=== PATIENT | female | born 1975 | race Hispanic/Latino ===

== ENCOUNTER 2019-08-16 22:58 | Emergency (ER) | payer SELFPAY ==
--- NOTE | 2019-08-16 23:40 | ER ---
Nurse's Notes [facility] Name: Yudith Silva Age: 44 yrs Sex: Female : 1975 Arrival Date: 08/16/2019 Time: 23:04 Bed 10 Private MD: Diagnosis: Superficial injury of head Presentation: 08/16 23:22 Presenting complaint: Patient states: she hit right side of her head on a shelf at work bb today approx 1730 called the work hot line for injuries and they recommended she be seen in the ED pt has headache which has improved now denies LOC, denies vomiting. Transition of care: patient was not received from another setting of care. Onset of symptoms was August 16, 2019. Risk Assessment: Do you want to hurt yourself or someone else? Patient reports no desire to harm self or others. Initial Sepsis Screen: Does the patient meet any 2 criteria? No. Patient's initial sepsis screen is negative. Does the patient have a suspected source of infection? No. Patient's initial sepsis screen is negative. Care prior to arrival: None. 23:22 Method Of Arrival: Ambulatory bb 23:22 Acuity: LEXY 5 bb Triage Assessment: 23:24 General: Appears in no apparent distress. Behavior is calm, cooperative. Pain: bb Complains of pain in right temporal area Pain currently is 7 out of 10 on a pain scale. Neuro: Level of Consciousness is awake, alert, obeys commands, Oriented to person, place, time, situation. Cardiovascular: No deficits noted. Respiratory: Respiratory effort is even, unlabored, Respiratory pattern is regular. GI: No signs and/or symptoms were reported involving the gastrointestinal system. Derm: Skin is pink, warm \T\ dry. Bruising that is on right temporal area. Musculoskeletal: Circulation, motion, and sensation intact. [employer]: 23:24 LMP N/A - Post-menopause bb Historical: - Allergies: 23:24 No Known Allergies; bb - Home Meds: 23:24 None [Active]; bb - PMHx: 23:24 None; bb - PSHx: 23:24 None; bb - Immunization history:: Adult Immunizations up to date. - Social history:: Smoking status: Patient/guardian denies using tobacco. - Ebola Screening: : No symptoms or risks identified at this time. Screenin:34 Abuse screen: Denies threats or abuse. Nutritional screening: No deficits noted. bb Tuberculosis screening: No symptoms or risk factors identified. Fall Risk None identified. Assessment: 23:26 Reassessment: No changes from previously documented assessment. see triage assessment. bb 23:51 Reassessment: pt verbalized understanding of and agrees to plan of care discharge bb instructions given pt ambulated with steady gait to exit. Vital Signs: 23:24 BP 137 / 67; Pulse 73; Resp 16 S; Temp 98.2(O); Pulse Ox 100% on R/A; Weight 52.16 kg bb (R); Height 4 ft. 11 in. (149.86 cm) (R); Pain 7/10; 23:24 Body Mass Index 23.23 (52.16 kg, 149.86 cm) bb Mariam Coma Score: 08/17 00:38 Eye Response: spontaneous(4). Verbal Response: oriented(5). Motor Response: obeys kb commands(6). Total: 15. ED Course: 08/16 23:04 Patient arrived in ED. ds1 23:23 Triage completed. bb 23:24 Arm band placed on Patient placed in an exam room, on a stretcher, on pulse oximetry. bb 23:31 Lidia Ricci F[facility]-C is [facility]. kb 23:31 Juwan Mathis MD is Attending Physician. kb 23:34 Patient has correct armband on for positive identification. Bed in low position. Call bb light in reach. 23:52 No provider procedures requiring assistance completed. Patient did not have IV access bb during this emergency room visit. Administered Medications: No medications were administered Outcome: 23:38 Discharge ordered by . kb 23:52 Discharged to home ambulatory. bb 23:52 Condition: stable 23:52 Discharge instructions given to patient, Instructed on discharge instructions, follow up and referral plans. Demonstrated understanding of instructions, follow-up care. 23:52 Patient left the ED. bb Signatures: Lidia Ricci FNP-C FNP-Ckb Sanford, Demi ds1 Evelyn Mathew, RN RN bb
--- NOTE | 2019-08-16 23:40 | EDPHYS ---
Physician Documentation [facility] Name: Yudith Silva Age: 44 yrs Sex: Female : 1975 Arrival Date: 08/16/2019 Time: 23:04 Bed 10 Private MD: ED Physician Juwan Mathis HPI: 08/17 00:38 This 44 yrs old Female presents to ER via Ambulatory with complaints of Hit kb Head on Shelf. 00:38 The patient or guardian reports abrasion, injury, swelling, tenderness. The complaints kb affect the right faith. Context of injury: The problem was sustained at work, resulted from a direct blow, a shelf. Onset: The symptoms/episode began/occurred at 18:30. Associated signs and symptoms: The patient has no apparent associated signs or symptoms, Loss of consciousness: This patient did not experience any loss of consciousness. Severity of symptoms: At their worst the symptoms were mild, in the emergency department the symptoms are unchanged. The patient has not experienced similar symptoms in the past. The patient has not recently seen a physician. Pt reports she stood up and hit her head on a shelf. States she did it at work and was told she needed to get checked out. 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 - Social history:: Smoking status: Patient/guardian denies using tobacco. - Ebola Screening: : No symptoms or risks identified at this time. ROS: 08/17 00:37 Constitutional: Negative for fever, chills, and weight loss, Neck: Negative for injury, kb pain, and swelling, Cardiovascular: Negative for chest pain, palpitations, and edema, Respiratory: Negative for shortness of breath, cough, wheezing, and pleuritic chest pain, Abdomen/GI: Negative for abdominal pain, nausea, vomiting, diarrhea, and constipation, Back: Negative for injury and pain, MS/Extremity: Negative for injury and deformity, Neuro: Negative for headache, weakness, numbness, tingling, and seizure. Skin: Positive for abrasion(s), hematoma, of the right faith. Exam: 00:37 Constitutional: This is a well developed, well nourished patient who is awake, alert, kb and in no acute distress. Eyes: Pupils equal round and reactive to light, extra-ocular motions intact. Lids and lashes normal. Conjunctiva and sclera are non-icteric and not injected. Cornea within normal limits. Periorbital areas with no swelling, redness, or edema. ENT: Nares patent. No nasal discharge, no septal abnormalities noted. Tympanic membranes are normal and external auditory canals are clear. Oropharynx with no redness, swelling, or masses, exudates, or evidence of obstruction, uvula midline. Mucous membranes moist. Neck: Trachea midline, no thyromegaly or masses palpated, and no cervical lymphadenopathy. Supple, full range of motion without nuchal rigidity, or vertebral point tenderness. No Meningismus. Chest/axilla: Normal chest wall appearance and motion. Nontender with no deformity. No lesions are appreciated. Cardiovascular: Regular rate and rhythm with a normal S1 and S2. No gallops, murmurs, or rubs. Normal PMI, no JVD. No pulse deficits. Respiratory: Lungs have equal breath sounds bilaterally, clear to auscultation and percussion. No rales, rhonchi or wheezes noted. No increased work of breathing, no retractions or nasal flaring. Abdomen/GI: Soft, non-tender, with normal bowel sounds. No distension or tympany. No guarding or rebound. No evidence of tenderness throughout. MS/ Extremity: Pulses equal, no cyanosis. Neurovascular intact. Full, normal range of motion. Neuro: Awake and alert, GCS 15, oriented to person, place, time, and situation. Cranial nerves II-XII grossly intact. Motor strength 5/5 in all extremities. Sensory grossly intact. Cerebellar exam normal. Normal gait. 00:37 Head/face: Noted is no obvious of injury or deformity except hematoma, that is moderate, of the right faith. Vital Signs: 08/16 23:24 BP 137 / 67; Pulse 73; Resp 16 S; Temp 98.2(O); Pulse Ox 100% on R/A; Weight 52.16 kg bb (R); Height 4 ft. 11 in. (149.86 cm) (R); Pain 7/10; 23:24 Body Mass Index 23.23 (52.16 kg, 149.86 cm) bb [place] Coma Score: 08/17 00:38 Eye Response: spontaneous(4). Verbal Response: oriented(5). Motor Response: obeys kb commands(6). Total: 15. MDM: 08/16 23:31 Patient medically screened. kb 08/17 00:38 Data reviewed: vital signs, nurses notes. Data interpreted: Pulse oximetry: on room air kb is 100 %. Interpretation: normal. Counseling: I had a detailed discussion with the patient and/or guardian regarding: the historical points, exam findings, and any diagnostic results supporting the discharge/admit diagnosis, the need for outpatient follow up, a family practitioner, to return to the emergency department if symptoms worsen or persist or if there are any questions or concerns that arise at home. Administered Medications: No medications were administered Disposition: 02:55 Co-signature as Attending Physician, Juwan Mathis MD. elvis Disposition: 08/16/19 23:38 Discharged to Home. Impression: Superficial injury of head. - Condition is Stable. - Discharge Instructions: Hematoma, [id number], Head Injury, Adult, [id number]. - Medication Reconciliation Form, Thank You Letter, Antibiotic Education, Prescription Opioid Use form. - Follow up: Emergency Department; When: As needed; Reason: Worsening of condition. Follow up: Private Physician; When: 2 - 3 days; Reason: Recheck today's complaints, Continuance of care, Re-evaluation by your physician. Signatures: Lidia Ricci, TRIM SETTER-C TRIM SETTER-Ckb Juwan Mathis MD MD pkEvelyn Arriola RN RN bb Corrections: (The following items were deleted from the chart) 08/16 23:52 23:38 08/16/2019 23:38 Discharged to Home. Impression: Superficial injury of head. bb Condition is Stable. Forms are Medication Reconciliation Form, Thank You Letter, Antibiotic Education, Prescription Opioid Use. Follow up: Emergency Department; When: As needed; Reason: Worsening of condition. Follow up: Private Physician; When: 2 - 3 days; Reason: Recheck today's complaints, Continuance of care, Re-evaluation by your physician. kb
[2019-08-17 00:36] VITALS: BP 137/67; TEMP 98.2; O2SAT 100
== END 2019-08-16 23:52 | disposition home or self-care (01) ==
LOC: ER 22:58
DX: S00.90XA Unspecified superficial injury of unspecified part of head, initial encounter (principal); W22.8XXA Striking against or struck by other objects, initial encounter; Y93.89 Activity, other specified; Y92.89 Other specified places as the place of occurrence of the external cause; Y99.0 Civilian activity done for income or pay
CPT/HCPCS: 99283